=== PATIENT | male | born 1985 | race Asian ===

== ENCOUNTER 2021-06-23 11:15 | Emergency (ER) | payer OTHER ==
[~2021-06-23] VITALS: Ht 162.6 cm; Wt 63.5 kg
== END 2021-06-23 16:02 | disposition home or self-care (01) ==
LOC: FSED 11:24
DX: K40.90 Unilateral inguinal hernia, without obstruction or gangrene, not specified as recurrent (principal); Z90.49 Acquired absence of other specified parts of digestive tract; F17.210 Nicotine dependence, cigarettes, uncomplicated; F17.200 Nicotine dependence, unspecified, uncomplicated
CPT/HCPCS: 76705; 76870; 99282